=== PATIENT | male | born 1975 | race Caucasian/White ===

== ENCOUNTER → 2017-12-27 | Outpatient (CLI) | payer OTHER ==
[~2017-12-27] VITALS: Ht 162.6 cm; Wt 81.6 kg
[~2017-12-27] MED LIST: MULTIVITAMINS PO; PROTONIX 20 MG20 MG PO
--- NOTE | ~2017-12-27 | O ---
[facility] [place] [address] OPERATIVE REPORT Name: LICHA BERRY Room #: [facility]#: [id number] Admission: 12/27/17 Attend Phys: Pete Zamorano MD, Discharge: Date of : 77 Report #: [id number] THIS REPORT FOR: //name// CC: Pete Charlton Kapadia DATE OF SERVICE: 12/27/2017 PREOPERATIVE DIAGNOSIS: Gastroesophageal reflux disease. POSTOPERATIVE DIAGNOSES: 1. Gastroesophageal reflux disease without esophagitis. 2. A 1 cm hiatal hernia. PROCEDURE PERFORMED: Thorough esophagogastroduodenoscopy (EGD). SURGEON: Pete Zamorano MD VASCULAR TECHNICIAN: None. ANESTHESIA: Monitored anesthesia care. ESTIMATED BLOOD LOSS: None. COMPLICATIONS: None. SPECIMENS: None. INDICATIONS: The patient is a 42-year-old male who presents with a longstanding history of GERD that has been recalcitrant to medical therapy over the recent past. The patient has increased his proton pump inhibitor therapy to b.i.d. and is still having significant breakthrough symptoms and as such, indications for EGD today. DESCRIPTION OF PROCEDURE: After explaining the risks, benefits and alternatives of the procedure and obtaining consent, the patient was brought to the endoscopy suite, supine on his hospital bed. After conducting a thorough timeout procedure verifying correct patient and procedure, the patient was given monitored anesthesia care. Once adequate anesthesia was obtained, his SCDs were hooked up to pneumatic compression device and he was placed in left lateral decubitus position with all pressure points appropriately padded. The Fujinon upper endoscope was then used to intubate the oropharynx, was traversed down into the esophagus with ease. The scope was advanced to the second portion of the duodenum where slow careful withdrawal of the scope showed no evidence of duodenitis, gastritis, esophagitis, mass lesions or ulcerations. A retroflexion view of the scope within the gastric lumen did show a 1 cm hiatal hernia. The [address] [address] OPERATIVE REPORT Name: LICHA BERRY Stephen Room #: [facility]#: [id number] Admission: 12/27/17 Attend Phys: Pete Zamorano MD, Discharge: Date of : 77 Report #: [id number] scope was straightened out and withdrawn into the distal esophagus where again, I saw no evidence of esophagitis or Adorno's changes whatsoever. The scope was advanced into the gastric lumen where it was fully desufflated and was then removed and passed off the field completing the procedure. At the end of the procedure, all instrument, needle and sponge counts were correct. The patient tolerated the procedure without incident, was awakened in the endoscopy suite and transitioned to the recovery room in stable condition with no apparent complications. <ELECTRONICALLY SIGNED> By: Pete Zamorano MD, FACS 12/28/17 1702 [id number] Pete Zamorano MD, DENNIS /nt
== END | disposition home or self-care (01) ==
LOC: GI 06:10
DX: K21.9 Gastro-esophageal reflux disease without esophagitis (principal); K44.9 Diaphragmatic hernia without obstruction or gangrene; Z87.891 Personal history of nicotine dependence
CPT/HCPCS: 62110